=== PATIENT | female | born 1990 | race African-American/Black ===

== ENCOUNTER 2018-11-04 12:10 | Emergency (ER) | payer MEDICAID ==
[~2018-11-04] VITALS: Ht 165.1 cm; Wt 60.0 kg
[2018-11-04 12:14] VITALS: BP 139/84
== END 2018-11-04 15:15 | disposition home or self-care (01) ==
LOC: ER 12:21
DX: T59.3X3A Toxic effect of lacrimogenic gas, assault, initial encounter (principal); R45.4 Irritability and anger; Y92.098 Other place in other non-institutional residence as the place of occurrence of the external cause; R03.0 Elevated blood-pressure reading, without diagnosis of hypertension
CPT/HCPCS: 99283